=== PATIENT | male | born 1945 | race Caucasian/White ===

== ENCOUNTER 2020-06-30 15:18 | Emergency (ER) | payer OTHER ==
[~2020-06-30] VITALS: Ht 170.2 cm; Wt 115.7 kg
[2020-06-30 15:47] VITALS: BP_SYST 153
[2020-06-30] MEDS: DIPHENHYDRAMINE INJ 50 MG/ML VIAL IVP ONE (16:15)
[2020-06-30 17:11] LABS: BILIRUBIN,URINE NEGATIVE (NEGATIVE); BLOOD, URINE 1+ (NEGATIVE); COLOR,URINE YELLOW (YELLOW); GLUCOSE,URINE NEGATIVE (NEGATIVE); KETONES,URINE NEGATIVE (NEGATIVE); LEUKOCYTE ESTERASE ,URINE 2+ (NEGATIVE); NITRITE, URINE NEGATIVE (NEGATIVE); PROTEIN URINE NEGATIVE (NEGATIVE); UROBILINOGEN,URINE 0.2 (0.2-1.0)
[2020-06-30 17:31] LABS: CLARITY/URINE HAZY (CLEAR)
[2020-06-30 17:34] LABS: BASOPHILS # (AUTO) 0.1 K/uL (0.0-0.2); BASOPHILS % (AUTO) 0.6 % (0.0-2.0); HEMATOCRIT 48.9 % (36-54); HEMOGLOBIN 16.7 g/dL (14.0-18.0); LYMPHOCYTES # (AUTO) 2.3 K/uL (1.0-5.5); MEAN CORPUSCULAR HEMOGLOBIN 32 pg (27-31); MEAN CORPUSCULAR HGB CONC 34 % (32-36); MEAN CORPUSCULAR VOLUME 93 fL (79.0-98.0); MONOCYTES # (AUTO) 2.1 K/uL (0.0-1.0); NEUTROPHILS # (AUTO) 16.1 K/uL (1.8-7.7); NEUTROPHILS % (AUTO) 78.4 % (40.0-70.0); PLATELET COUNT (AUTO) 185 K/uL (130-430); RED BLOOD CELL COUNT(AUTO) 5.28 MIL/uL (4.2-6.2); RED CELL DISTRIBUTION WIDTH 14.2 % (9.0-15.0); WHITE BLOOD COUNT (AUTO) 20.6 K/uL (4.8-10.8)
[2020-06-30 17:50] LABS: WBC,URINE >100 /HPF (0-3)
[2020-06-30 17:51] LABS: BACTERIA,URINE FEW /HPF (None Seen); MUCUS,URINE 1+ /LPF (None Seen)
[2020-06-30 17:55] LABS: ANION GAP 11 (5-15); CALCIUM 9.1 mg/dL (8.4-11.0); CHLORIDE 101 mmol/L (98-107); CREATININE 0.93 mg/dL (0.55-1.30); GLUCOSE 106 mg/dL (70-99); POTASSIUM 3.5 mmol/L (3.5-5.1); SODIUM SERUM 135 mmol/L (136-145); UREA NITROGEN, BLOOD 9 mg/dL (8-21)
[2020-06-30] MEDS: cefTRIAXone 1 GM in D5W 50 ML IV ONE (18:09)
[2020-06-30 19:43] VITALS: BP_SYST 129
== END 2020-06-30 19:43 | disposition home or self-care (01) ==
LOC: SED 15:18
DX: N39.0 Urinary tract infection, site not specified (principal); R50.9 Fever, unspecified; I10 Essential (primary) hypertension; E78.5 Hyperlipidemia, unspecified; N40.0 Benign prostatic hyperplasia without lower urinary tract symptoms; Z20.822 Contact with and (suspected) exposure to COVID-19
CPT/HCPCS: 36415; 71045; 80048; 81000-TC; 83880; 84484; 85025; 87086; 93005; 96365; 99285

== ENCOUNTER 2021-10-18 10:00 | Outpatient (CLI) | payer OTHER ==
[~2021-10-18] VITALS: Ht 170.2 cm; Wt 117.9 kg
[~2021-10-18 10:00] MED LIST: CEFAZOLIN SOD 1 GM in D5W 50 ML IV ONE
[2021-10-18 15:02] VITALS: BP_SYST 157
== END 2021-10-18 11:00 | disposition home or self-care (01) ==
LOC: SLB 10:00 → SDS 11:59 → SMU 12:00 → SDS 12:00 → EDSTATUS 14:20
PROVIDERS: ATTEND Colon & Rectal Surgery
DX: K40.90 Unilateral inguinal hernia, without obstruction or gangrene, not specified as recurrent (principal); Z20.822 Contact with and (suspected) exposure to COVID-19; Z53.8 Procedure and treatment not carried out for other reasons
CPT/HCPCS: 36415 ×2; 87426; U0003; J0690; J7060